=== PATIENT | female | born 1950 | race Caucasian/White ===

== ENCOUNTER → 2017-08-28 | Outpatient (CLI) | payer MEDICARE ==
--- NOTE | 2017-08-29 10:49 | MM ---
Reason for exam: screening (asymptomatic). Last mammogram was performed 1 year ago. History: Patient is postmenopausal. Physical Findings: A clinical breast exam by your physician is recommended on an annual basis and results should be correlated with mammographic findings. MG 3D Screening Mammo W/Cad Bilateral CC and MLO view(s) were taken. Prior study comparison: August 25, 2016, bilateral MG 3d screening mammo w/cad. August 23, 2015, bilateral MG screening mammo w CAD. The breast tissue is heterogeneously dense. This may lower the sensitivity of mammography. No suspicious abnormality. No significant changes when compared with prior studies. ASSESSMENT: Negative, BI-RAD 1 RECOMMENDATION: Routine screening mammogram of both breasts in 1 year.
== END | disposition home or self-care (01) ==
LOC: RADMAMWWP 06:46
PROVIDERS: ATTEND Internal Medicine
DX: Z12.31 Encounter for screening mammogram for malignant neoplasm of breast (principal)
CPT/HCPCS: 77063; G0202

== ENCOUNTER → 2018-09-17 | Outpatient (CLI) | payer MEDICARE ==
--- NOTE | 2018-09-18 14:24 | MM ---
Reason for exam: screening (asymptomatic). Last mammogram was performed 1 year and 1 month ago. History: Patient is postmenopausal. Took hormonal contraceptives for 4 years. Physical Findings: A clinical breast exam by your physician is recommended on an annual basis and results should be correlated with mammographic findings. MG 3D Screening Mammo W/Cad Bilateral CC and MLO view(s) were taken. Prior study comparison: August 28, 2017, bilateral MG 3d screening mammo w/cad. August 25, 2016, bilateral MG 3d screening mammo w/cad. The breast tissue is heterogeneously dense. This may lower the sensitivity of mammography. Benign appearing bilateral calcifications. No suspicious abnormality. No significant changes when compared with prior studies. ASSESSMENT: Benign, BI-RAD 2 RECOMMENDATION: Routine screening mammogram of both breasts in 1 year.
== END ==
LOC: RADMAMWWP 09:47
PROVIDERS: ATTEND Internal Medicine
DX: Z12.31 Encounter for screening mammogram for malignant neoplasm of breast (principal)
CPT/HCPCS: 77063; 77067

== ENCOUNTER → 2018-10-23 | Outpatient (CLI) | payer MEDICARE ==
[2018-10-23 13:37] LABS: Blood Urea Nitrogen 11 mg/dL (7-17)
--- NOTE | 2018-10-23 16:05 | CT ---
EXAMINATION TYPE: CT urogram wo/w con DATE OF EXAM: 10/23/2018 HISTORY: Hematuria CT DLP: 2922mGycm Automated Exposure Control for Dose Reduction was Utilized. CONTRAST: CT scan of the abdomen and pelvis is performed without oral and without and with IV Contrast, patient injected with 100 mL of Isovue 300. Urogram protocol with Three-D reconstructed images created on a independent workstation and reviewed. COMPARISON: None FINDINGS: KUB: Noncontrast images show no renal calculus bilaterally. Postcontrast images show symmetric cortic al medullary uptake and excretion from both kidneys without evidence of hydronephrosis bilaterally. T here are few subcentimeter low dense lesions scattered throughout both kidneys are too small to furth er characterize per presumed benign. Visualized portion of both ureters show no suspicious dilatation or obstructing mass/calculus. Bladder show satisfactory distention on 10 minute images without suspi cious intraluminal mass or wall thickening. . LUNG BASES: No significant abnormality is appreciated. LIVER/GB: Cholecystectomy clips are noted. PANCREAS: No significant abnormality is seen. SPLEEN: No significant abnormality is seen. ADRENALS: No significant abnormality is seen. KIDNEYS: No significant abnormality is seen. BOWEL: No significant abnormality is seen. UTERUS/ADNEXA: Uterus is surgically absent. LYMPH NODES: No greater than 1cm abdominal or pelvic lymph nodes are appreciated. OSSEOUS STRUCTURES: Mild to moderate multilevel spurring in the mid to lower thoracic spine is presen t. There is multilevel facet arthropathy in the mid to lower lumbar spine. Moderate narrowing and spu rring of both hip joints is seen. OTHER: Mild haziness of the mesentery is seen for reference coronal image 45 series 15. No obvious ad enopathy or suspicious masses are identified. This can be followed. IMPRESSION: No suspicious finding is seen to account for patient's symptoms of hematuria.
== END | disposition home or self-care (01) ==
LOC: RADCTMAIN 13:01
PROVIDERS: ATTEND Internal Medicine
DX: R31.9 Hematuria, unspecified (principal)
CPT/HCPCS: 82565; 84520; 74178; 36415; 74400; Q9967

== ENCOUNTER → 2019-01-10 | Outpatient (CLI) | payer MEDICARE ==
--- NOTE | 2019-01-11 22:21 | CT ---
EXAMINATION TYPE: CT abdomen wo con DATE OF EXAM: 01/10/2019 COMPARISON: CT urogram 10/23/2018 INDICATION: epigastric pain DLP: 491.3 mGycm, Automated exposure control for dose reduction was used. CONTRAST: 0 mL of Isovue 300. Study performed with Oral Contrast TECHNIQUE: Axial images were obtained from above the diaphragm to the pubic rami in the axial plane a t 5 mm thick sections. Reconstructed images are reviewed on the computer in the coronal plane. FINDINGS: Limited CT sections are obtained the lung bases. The lung bases are clear. CT ABDOMEN: Liver: Normal Spleen: Normal Pancreas: Normal Adrenal glands: The adrenal glands are normal. Gallbladder: Surgically absent Kidneys: No masses are evident. No hydronephrosis is present. No cysts are present. No renal stone s are identified. Aorta: Normal Inferior vena cava: Normal. IMPRESSIONS: 1. No suspicious acute changes to account for epigastric pain
== END | disposition home or self-care (01) ==
LOC: RADCTMAIN 16:51
PROVIDERS: ATTEND Internal Medicine
DX: K46.9 Unspecified abdominal hernia without obstruction or gangrene (principal)
CPT/HCPCS: 74150

== ENCOUNTER → 2019-09-09 | Outpatient (CLI) | payer MEDICARE ==
--- NOTE | 2019-09-09 13:27 | US ---
EXAMINATION TYPE: US venous doppler duplex LE LT DATE OF EXAM: 09/09/2019 12:48 PM COMPARISON: NONE CLINICAL HISTORY: LLE pain in left lower leg M79.662. SIDE PERFORMED: Left TECHNIQUE: The lower extremity deep venous system is examined utilizing real time linear array sonog yamileth with graded compression, doppler sonography and color-flow sonography. VESSELS IMAGED: External Iliac Vein (EIV) Common Femoral Vein Deep Femoral Vein Greater Saphenous Vein * Femoral Vein Popliteal Vein Small Saphenous Vein * Proximal Calf Veins (* superficial vessels) Left Leg: Negative for DVT Grayscale, color doppler, spectral doppler imaging performed of the deep veins of the left lower ext remity. There is normal flow, compressibility, vascular waveforms. IMPRESSION: No ultrasound evidence for acute DVT in the left lower extremity.
== END | disposition home or self-care (01) ==
LOC: RADUSWWP 12:29
PROVIDERS: ATTEND Internal Medicine
DX: M79.662 Pain in left lower leg (principal)

== ENCOUNTER → 2019-09-18 | Outpatient (CLI) | payer MEDICARE ==
--- NOTE | 2019-09-22 08:52 | MM ---
Reason for exam: screening (asymptomatic). Last mammogram was performed 1 year ago. History: Patient is postmenopausal. Took hormonal contraceptives for 4 years. Physical Findings: A clinical breast exam by your physician is recommended on an annual basis and results should be correlated with mammographic findings. MG 3D Screening Mammo W/Cad Bilateral CC and MLO view(s) were taken. Prior study comparison: September 17, 2018, bilateral MG 3d screening mammo w/cad. August 28, 2017, bilateral MG 3d screening mammo w/cad. The breast tissue is heterogeneously dense. This may lower the sensitivity of mammography. No significant changes when compared with prior studies. ASSESSMENT: Negative, BI-RAD 1 RECOMMENDATION: Routine screening mammogram of both breasts in 1 year.
== END | disposition home or self-care (01) ==
LOC: RADMAMWWP 11:40
PROVIDERS: ATTEND Internal Medicine
DX: Z12.31 Encounter for screening mammogram for malignant neoplasm of breast (principal)
CPT/HCPCS: 77063; 77067

== ENCOUNTER → 2020-07-05 | Outpatient (CLI) | payer MEDICARE ==
--- NOTE | 2020-07-05 14:31 | US ---
EXAMINATION TYPE: US kidneys/renal and bladder DATE OF EXAM: 07/05/2020 COMPARISON: 03/29/2016 CLINICAL HISTORY: R31.21 Asymptomatic microscopic hematuria. No pain. Microscopic hematuria. EXAM MEASUREMENTS: Right Kidney: 10.7 x 4.9 x 3.7 cm Left Kidney: 10.8 x 4.5 x 5.4 cm Right Kidney: medial anechoic lesion at hilum = 1.1 x 0.8 cm, may be a peripelvic cyst. Left Kidney: No hydronephrosis or masses seen Bladder: distended, anechoic Bilateral Jets seen IMPRESSION: Suspected peripelvic cyst right kidney
== END | disposition home or self-care (01) ==
LOC: RADUSWWP 13:29
PROVIDERS: ATTEND Internal Medicine
DX: R31.21 Asymptomatic microscopic hematuria (principal)
CPT/HCPCS: 76770

== ENCOUNTER → 2020-07-07 | Outpatient (CLI) | payer MEDICARE ==
--- NOTE | 2020-07-07 08:12 | US ---
EXAMINATION TYPE: US liver DATE OF EXAM: 07/07/2020 COMPARISON: CT CLINICAL HISTORY: Increased Bilirubin E80.7. EXAM MEASUREMENTS: Liver Length: 12.5 cm Gallbladder Wall: Surgically absent CBD: 0.5 cm Right Kidney: 9.3 x 3.9 x 4.7 cm Pancreas: Limited by bowel gas Liver: wnl Gallbladder: Surgically absent CBD: wnl Right Kidney: No hydronephrosis or masses seen IMPRESSION: 1. Postcholecystectomy changes.
== END | disposition home or self-care (01) ==
LOC: RADUSWWP 06:50
PROVIDERS: ATTEND Internal Medicine
DX: E80.7 Disorder of bilirubin metabolism, unspecified (principal); Z90.49 Acquired absence of other specified parts of digestive tract
CPT/HCPCS: 76705

== ENCOUNTER 2020-08-23 09:50 | Emergency (ER) | payer MEDICARE ==
[2020-08-23 09:57] VITALS: TEMP 98.5
[2020-08-23] MEDS ORDERED: SODIUM CHLORIDE 0.9% 500 ML 500 ML IV STA (10:21)
--- NOTE | 2020-08-23 10:22 | ED ---
General Adult HPI - General Chief complaint: Chest Pain Stated complaint: Chest Pains, +COVID Time Seen by Provider: 08/23/20 10:05 Source: patient, RN notes reviewed Mode of arrival: wheelchair Limitations: no limitations - History of Present Illness Initial comments: 69-year-old female with a past medical history of hyperlipidemia, hypertension, GERD presents to the emergency department for chest pain. Patient states this started last night. Patient describes the pain as a sharp pain that comes and goes in the left side of her chest. Patient states that when she can get up and walk the pain is better. She states that going from sitting to standing and movement worsens the pain. Patient states she has had costochondritis in the past and states it feels somewhat similar. Patient reports that she was tested positive for covid 3 days ago. She reports that she has had symptoms of a sinus infection August 08. She is also felt more weak than normal. She states she has minimal cough and congestion. No shortness of breath. No fevers. no diaphoresis. never smoker. Patient has no other complaints at this time including shortness of breath, abdominal pain, nausea or vomiting, headache, or visual changes. - Related Data Home Medications Medication Instructions Recorded Confirmed Aspirin 81 mg PO HS 12/08/15 08/23/20 Calcium Carbonate/Vitamin D3 1 tab PO BID 12/08/15 08/23/20 [Calcium 600 + Vit D Tablet] Fluticasone Propionate 1 spray EA NOSTRIL DAILY 12/08/15 08/23/20 Metoprolol Succinate [Toprol XL] 50 mg PO BID 12/08/15 08/23/20 Montelukast [Singulair] 10 mg PO HS 12/08/15 08/23/20 Multivitamins, Thera [Multivitamin] 1 tab PO DAILY 12/08/15 08/23/20 amLODIPine BESYLATE/BENAZEPRIL 1 cap PO DAILY 12/08/15 08/23/20 [Lotrel 5-40 mg Capsule] Atorvastatin [Lipitor] 10 mg PO HS 08/23/20 08/23/20 Cetirizine HCl [Zyrtec] 10 mg PO DAILY 08/23/20 08/23/20 Famotidine [Pepcid] 40 mg PO BID 08/23/20 08/23/20 methylPREDNISolone Dose Pack See Taper PO DAILY 08/23/20 08/23/20 [Medrol Dose Pack] Allergies Allergy/AdvReac Type Severity Reaction Status Date / Time erythromycin base AdvReac Diarrhea Verified 08/23/20 11:19 lansoprazole [From Prevacid] AdvReac Diarrhea Verified 08/23/20 11:19 omeprazole [From Prilosec] AdvReac Diarrhea Verified 08/23/20 11:19 omeprazole magnesium AdvReac Diarrhea Verified 08/23/20 11:19 [From Prilosec] Review of Systems ROS Statement: Those systems with pertinent positive or pertinent negative responses have been documented in the HPI. ROS Other: All systems not noted in ROS Statement are negative. Past Medical History Past Medical History: GERD/Reflux, Hyperlipidemia, Hypertension, Osteoarthritis (OA) Additional Past Medical History / Comment(s): hiatle hernia, palpitations History of Any Multi-Drug Resistant Organisms: None Reported Past Surgical History: Appendectomy, Cholecystectomy, Hysterectomy, Orthopedic Surgery, Tubal Ligation Past Anesthesia/Blood Transfusion Reactions: No Reported Reaction Past Psychological History: No Psychological Hx Reported Smoking Status: Never smoker Past Alcohol Use History: None Reported Past Drug Use History: None Reported - Past Family History Mother Family Medical History: CVA/TIA (Mother at the age of 45 from CVA) Father Family Medical History: CVA/TIA (Father at age of 79 from CVA) Brother(s) Family Medical History: Cancer (Patient had one brother who at age of 50 from lung cancer) Sister(s) Family Medical History: AFIB, Congestive Heart Failure (CHF) (Patient has 5 sisters one with palpitation status post permanent pacemaker placement, one with A. fib, one with the polyps status post surgery.), GERD/Reflux, Thyroid Disorder General Exam Limitations: no limitations General appearance: alert, in no apparent distress Head exam: Present: atraumatic, normocephalic, normal inspection Eye exam: Present: normal appearance, PERRL, EOMI. Absent: scleral icterus, conjunctival injection, periorbital swelling ENT exam: Present: normal exam, mucous membranes moist Neck exam: Present: normal inspection, full ROM. Absent: tenderness, meningismus, lymphadenopathy Respiratory exam: Present: normal lung sounds bilaterally, chest wall tenderness (L anterior chest wall tenderness). Absent: respiratory distress, wheezes, rales, rhonchi, stridor Cardiovascular Exam: Present: regular rate, normal rhythm, normal heart sounds. Absent: systolic murmur, diastolic murmur, rubs, gallop, clicks GI/Abdominal exam: Present: soft, normal bowel sounds. Absent: distended, tenderness, guarding, rebound, rigid Neurological exam: Present: alert Course Vital Signs 08/23/20 08/23/20 09:54 11:33 Temperature 98.5 F Pulse Rate 71 69 Respiratory 18 16 Rate Blood Pressure 153/88 147/86 O2 Sat by Pulse 98 98 Oximetry Medical Decision Making - Medical Decision Making Vitals are stable. Patient is well-appearing. The pain she describes as a typical. She reports it is a sharp pain that gets better with walking. Worsens with certain movements. Tender on exam. Patient has left-sided anterior chest wall tenderness EKG shows a sinus rhythm with PVCs. Ventricular rate 73. CBC unremarkable. CMP unremarkable. Troponin negative. BNP 339. D-dimer slightly elevated. CT of the chest showed no evidence for pulmonary embolism. Patient did have stress test in 2015 that was negative. I discussed this case with Dr. Andino. Pain is atypical in nature. Patient feeling much better. Discussed inpatient versus outpatient treatment, as symptoms are atypical and likely related to costochondritis or chest wall syndrome she prefers outpatient management. She is agreeable to returning should symptoms worsen. - Lab Data Result diagrams: 08/23/20 10:22 08/23/20 10:22 Lab Results 08/23/20 08/23/20 08/23/20 Range/Units 10:22 10:22 10:22 WBC 10.8 H (3.8-10.6) k/uL RBC 5.11 (3.80-5.40) m/uL Hgb 14.0 (11.4-16.0) gm/dL Hct 42.2 (34.0-46.0) % MCV 82.6 (80.0-100.0) fL MCH 27.5 (25.0-35.0) pg MCHC 33.3 (31.0-37.0) g/dL RDW 13.5 (11.5-15.5) % Plt Count 266 (150-450) k/uL MPV 7.1 Neutrophils % 84 % Lymphocytes % 7 % Monocytes % 8 % Eosinophils % 0 % Basophils % 0 % Neutrophils # 9.0 H (1.3-7.7) k/uL Lymphocytes # 0.7 L (1.0-4.8) k/uL Monocytes # 0.9 (0-1.0) k/uL Eosinophils # 0.0 (0-0.7) k/uL Basophils # 0.0 (0-0.2) k/uL PT 9.7 (9.0-12.0) sec INR 0.9 (<1.2) APTT 23.2 (22.0-30.0) sec D-Dimer 0.76 H (<0.60) mg/L FEU Sodium 140 (137-145) mmol/L Potassium 3.8 (3.5-5.1) mmol/L Chloride 105 (98-107) mmol/L Carbon Dioxide 27 (22-30) mmol/L Anion Gap 8 mmol/L BUN 11 (7-17) mg/dL Creatinine 0.57 (0.52-1.04) mg/dL Est GFR (CKD-EPI)AfAm >90 (>60 ml/min/1.73 sqM) Est GFR (CKD-EPI)NonAf >90 (>60 ml/min/1.73 sqM) Glucose 116 H (74-99) mg/dL Calcium 9.6 (8.4-10.2) mg/dL Magnesium 2.0 (1.6-2.3) mg/dL Total Bilirubin 1.5 H (0.2-1.3) mg/dL AST 44 H (14-36) U/L ALT 30 (4-34) U/L Alkaline Phosphatase 63 (38-126) U/L Troponin I (0.000-0.034) ng/mL NT-Pro-B Natriuret Pep pg/mL Total Protein 7.2 (6.3-8.2) g/dL Albumin 4.2 (3.5-5.0) g/dL Lipase 123 (23-300) U/L 08/23/20 08/23/20 Range/Units 10:22 10:22 WBC (3.8-10.6) k/uL RBC (3.80-5.40) m/uL Hgb (11.4-16.0) gm/dL Hct (34.0-46.0) % MCV (80.0-100.0) fL MCH (25.0-35.0) pg MCHC (31.0-37.0) g/dL RDW (11.5-15.5) % Plt Count (150-450) k/uL MPV Neutrophils % % Lymphocytes % % Monocytes % % Eosinophils % % Basophils % % Neutrophils # (1.3-7.7) k/uL Lymphocytes # (1.0-4.8) k/uL Monocytes # (0-1.0) k/uL Eosinophils # (0-0.7) k/uL Basophils # (0-0.2) k/uL PT (9.0-12.0) sec INR (<1.2) APTT (22.0-30.0) sec D-Dimer (<0.60) mg/L FEU Sodium (137-145) mmol/L Potassium (3.5-5.1) mmol/L Chloride (98-107) mmol/L Carbon Dioxide (22-30) mmol/L Anion Gap mmol/L BUN (7-17) mg/dL Creatinine (0.52-1.04) mg/dL Est GFR (CKD-EPI)AfAm (>60 ml/min/1.73 sqM) Est GFR (CKD-EPI)NonAf (>60 ml/min/1.73 sqM) Glucose (74-99) mg/dL Calcium (8.4-10.2) mg/dL Magnesium (1.6-2.3) mg/dL Total Bilirubin (0.2-1.3) mg/dL AST (14-36) U/L ALT (4-34) U/L Alkaline Phosphatase (38-126) U/L Troponin I <0.012 (0.000-0.034) ng/mL NT-Pro-B Natriuret Pep 339 pg/mL Total Protein (6.3-8.2) g/dL Albumin (3.5-5.0) g/dL Lipase (23-300) U/L Disposition Clinical Impression: Atypical chest pain Disposition: HOME SELF-CARE Condition: Good Instructions (If sedation given, give patient instructions): Costochondritis (ED) Additional Instructions: Please follow-up with your doctor in one to 2 days. If you are having worsening symptoms such as worsening pain or shortness of breath return to the emergency room. Is patient prescribed a controlled substance at d/c from ED?: No Referrals: Sailaja Mendoza MD [Primary Care Provider] - 1-2 days Time of Disposition: 12:51
[2020-08-23 10:46] LABS: Basophils % (A) 0 %; Eosinophils % (A) 0 %; HCT 42.2 % (34.0-46.0); Lymphocytes # (A) 0.7 k/uL (1.0-4.8); Lymphocytes % (A) 7 %; MCH 27.5 pg (25.0-35.0); MCHC 33.3 g/dL (31.0-37.0); MCV 82.6 fL (80.0-100.0); Mean Platelet Volume 7.1; Monocytes # (A) 0.9 k/uL (0-1.0); Monocytes % (A) 8 %; Neutrophils % (A) 84 %; Platelet Count 266 k/uL (150-450); RBC 5.11 m/uL (3.80-5.40); RDW 13.5 % (11.5-15.5); WBC 10.8 k/uL (3.8-10.6)
[2020-08-23 10:51] LABS: INR 0.9 (<1.2); Partial Thromboplastin Time 23.2 sec (22.0-30.0); Prothrombin Time 9.7 sec (9.0-12.0)
--- NOTE | 2020-08-23 10:51 | XR ---
EXAMINATION TYPE: XR chest 1V portable DATE OF EXAM: 08/23/2020 COMPARISON: NONE HISTORY: Chest pain TECHNIQUE: Single frontal view of the chest is obtained. FINDINGS: Heart size is normal. No overt failure. No pneumothorax or focal consolidation. No pleural effusion. Hypertrophic change of the spine. IMPRESSION: No acute process.
[2020-08-23 10:57] LABS: ALT 30 U/L (4-34); African American GFR (CKD) >90 (>60 ml/min/1.73 sqM); Albumin 4.2 g/dL (3.5-5.0); Anion Gap 8 mmol/L; Blood Urea Nitrogen 11 mg/dL (7-17); Calcium 9.6 mg/dL (8.4-10.2); Carbon Dioxide 27 mmol/L (22-30); Chloride 105 mmol/L (98-107); Glucose 116 mg/dL (74-99); Lipase 123 U/L (23-300); Non-African American GFR(CKD) >90 (>60 ml/min/1.73 sqM); Sodium 140 mmol/L (137-145); Total Bilirubin 1.5 mg/dL (0.2-1.3); Total Protein 7.2 g/dL (6.3-8.2)
[2020-08-23 11:01] LABS: D-Dimer 0.76 mg/L FEU (<0.60)
[2020-08-23 11:20] LABS: AST 44 U/L (14-36); Alkaline Phosphatase 63 U/L (38-126); Potassium 3.8 mmol/L (3.5-5.1)
[2020-08-23] MEDS ORDERED: ASPIRIN 325 MG TAB PO STA (11:24)
[2020-08-23] MEDS ORDERED: MORPHINE SULFATE 2 MG/ML SYRINGE IVP STA (11:24)
--- NOTE | 2020-08-23 12:19 | CT ---
EXAMINATION TYPE: CT chest angio for PE DATE OF EXAM: 08/23/2020 COMPARISON: None HISTORY: SOB CT DLP: 258.5 mGycm CONTRAST: CT chest with contrast and 3D reconstruction with MIP imaging is performed with IV Contrast, patient injected with 56ml mL of Isovue 370. Contrast-enhanced CT of the chest was performed through the course of the pulmonary arteries with bee g and mediastinal window settings submitted. 3D reconstruction with MIP imaging was also performed. PULMONARY ARTERIES: The pulmonary arteries and their major tributaries are patent. I do not see deyvi dence for sizable filling defect to suggest pulmonary embolic process. LUNGS: The lungs are clear and free of infiltrate. There is evidence of basilar compressive atelectas is. No pulmonary nodule or mass is detected. No pleural effusion. MEDIASTINUM: Thoracic aorta is of normal caliber,however, evaluation is limited given timing of the contrast bolus. If there is concern for thoracic aortic pathology consider HERON. Correlate clinicall y . The heart is enlarged. No evidence for mediastinal mass. No mediastinal lymph nodes greater bushra n 1cm. HILAR STRUCTURES: No evidence for mass. No hilar lymph nodes greater than 1 cm. UPPER ABDOMEN: No significant abnormality is seen. IMPRESSION: 1. No evidence for Pulmonary embolism at this time.
[2020-08-23] MEDS ORDERED: ACET/COD 300 MG/30 MG STARTER PACK 6 TAB BTL PO STA (12:51)
[2020-08-23 13:08] VITALS: BP 128/71; PULSE 86; RESP 14
== END 2020-08-23 13:07 | disposition home or self-care (01) ==
LOC: EC 09:50
DX: R07.89 Other chest pain (principal); R79.89 Other specified abnormal findings of blood chemistry; I49.3 Ventricular premature depolarization; I10 Essential (primary) hypertension; E78.5 Hyperlipidemia, unspecified; K21.9 Gastro-esophageal reflux disease without esophagitis; M19.90 Unspecified osteoarthritis, unspecified site; K44.9 Diaphragmatic hernia without obstruction or gangrene; Z79.51 Long term (current) use of inhaled steroids; Z79.82 Long term (current) use of aspirin; Z79.899 Other long term (current) drug therapy; Z88.1 Allergy status to other antibiotic agents; Z88.8 Allergy status to other drugs, medicaments and biological substances
CPT/HCPCS: 36415; 93005; 85379; 83880; 80053; 83690; 83735; 84484; 85025; 85610; 85730; 71045; 71275; 99285; 96374; 96361 ×3; J2270; Q9967

== ENCOUNTER → 2020-08-31 | Outpatient (CLI) | payer MEDICARE | END | disposition home or self-care (01) | LOC: LABWHC1 16:10 | PROVIDERS: ATTEND Internal Medicine | DX: U07.1 COVID-19 (principal) | CPT/HCPCS: U0003; C9803 ==

== ENCOUNTER → 2020-09-13 | Outpatient (CLI) | payer MEDICARE | END | disposition home or self-care (01) | LOC: LABWHC1 10:08 | PROVIDERS: ATTEND Internal Medicine | DX: U07.1 COVID-19 (principal) | CPT/HCPCS: U0003; C9803 ==

== ENCOUNTER → 2020-10-28 | Outpatient (CLI) | payer MEDICARE ==
--- NOTE | 2020-10-28 17:54 | BD ---
EXAMINATION TYPE: Axial Bone Density DATE OF EXAM: 10/28/2020 COMPARISON: 10.06.2016 CLINICAL HISTORY: 70 YR OLD FEMALE ICD-10 CODE: M81.0 AGE RELATED OSTEOPOROSIS Height: 61 Weight: 179 FRAX RISK QUESTIONS: Secondary Osteoporosis: YES 3. Menopause before 45: YES, POSSIBLY RISK FACTORS HISTORY OF: Postmenopausal woman: YES, SINCE AGE 30 PARTIAL HYST, UNKNOWN BLOOD LEVEL Lost more than 2 inches in height since high school: YES Hyperparathyroidism: NO Adrenal Insufficiency: NO MEDICATIONS: Additional Medications: BP MEDS, REFLUX , STATIN FOR CHOLESTEROL, VIT D AND CALCIUM Additional History: HYPERTENSION, ARTHRITIS, CHOLESTEROL AND REFLUX EXAM MEASUREMENTS: Bone mineral densitometry was performed using the [email or web address] System. Bone mineral density as measured about the Lumbar spine is: ----- L1-L4(G/cm2): 1.349 T Score Values are as follows: ----- L1: -0.7 ----- L2: 0.9 ----- L3: 2.6 ----- L4: 2.0 ----- L1-L4: 1.4 Bone mineral density has: Increased 8.2% since study of: 10.06.2016 Bone mineral density about the R hip (g/cm2): 1.022 Bone mineral density about the L hip (g/cm2): 1.020 T Score values are as follows: -----R Neck: -0.2 -----L Neck: -0.3 -----R Total: 0.1 -----L Total: 0.1 Bone mineral density has: Increased 4.5% since study of: 10.06.2016 FRAX%s: THERE IS A 7.55 CHANCE FOR A MAJOR OSTEOPOROTIC FX AND A 0.6% FOR HIP......PROBABILITY FOR FX IN 10 YRS TIME IMPRESSION: Normal (Values between +1 and -1 indicate normal bone mass). Consider repeating this study in 5 year s or sooner if there is some new clinical indication. NOTE: T-SCORE=SD OF THE YOUNG ADULT MEAN.
== END | disposition home or self-care (01) ==
LOC: RADBDWWP 09:16
PROVIDERS: ATTEND Internal Medicine
DX: M81.0 Age-related osteoporosis without current pathological fracture (principal)
CPT/HCPCS: 77080

== ENCOUNTER → 2020-12-17 | Outpatient (CLI) | payer MEDICARE ==
--- NOTE | 2020-12-20 11:21 | MM ---
Reason for exam: screening (asymptomatic). Last mammogram was performed 1 year and 3 months ago. History: Patient is postmenopausal. Took hormonal contraceptives for 4 years. Physical Findings: A clinical breast exam by your physician is recommended on an annual basis and results should be correlated with mammographic findings. MG 3D Screening Mammo W/Cad Bilateral CC and MLO view(s) were taken. Prior study comparison: September 18, 2019, bilateral MG 3d screening mammo w/cad. September 17, 2018, bilateral MG 3d screening mammo w/cad. The breast tissue is heterogeneously dense. This may lower the sensitivity of mammography. Superior asymmetric density is more defined and incompletely disperses on 3D images. ASSESSMENT: Incomplete: need additional imaging evaluation, BI-RAD 0 RECOMMENDATION: Special view mammogram of the left breast. (3D) If lesion persists on supplemental views, image directed ultrasound is recommended. [facility] will attempt to contact patient to return for supplemental views and ultrasound if indicated.
== END | disposition home or self-care (01) ==
LOC: RADMAMWWP 10:07
PROVIDERS: ATTEND Internal Medicine
DX: Z12.31 Encounter for screening mammogram for malignant neoplasm of breast (principal)
CPT/HCPCS: 77063; 77067

== ENCOUNTER → 2020-12-21 | Outpatient (CLI) | payer MEDICARE ==
--- NOTE | 2020-12-21 10:08 | MM ---
Reason for exam: additional evaluation requested from abnormal screening. Last mammogram was performed less than 1 month ago. History: Patient is postmenopausal. Took hormonal contraceptives for 4 years. Physical Findings: Nurse did not find any significant physical abnormalities on exam. MG 3D Work Up W/Cad LT Spot compression MLO, ML, and CC view(s) were taken of the left breast. Prior study comparison: December 17, 2020, bilateral MG 3d screening mammo w/cad. September 18, 2019, bilateral MG 3d screening mammo w/cad. The breast tissue is heterogeneously dense. This may lower the sensitivity of mammography. There is no discrete abnormality including area of concern left upper MLO view. These results were verbally communicated with the patient and result sheet given to the patient on 12/21/20. ASSESSMENT: Probably benign, BI-RAD 3 RECOMMENDATION: Follow-up diagnostic mammogram of the left breast in 6 months.
== END ==
LOC: RADMAMWWP 08:41
PROVIDERS: ATTEND Internal Medicine
DX: R92.8 Other abnormal and inconclusive findings on diagnostic imaging of breast (principal); Z78.0 Asymptomatic menopausal state
CPT/HCPCS: 77065; G0279; 77061

== ENCOUNTER → 2021-02-09 | Outpatient (CLI) | payer MEDICARE ==
--- NOTE | 2021-02-09 11:11 | US ---
EXAMINATION TYPE: US venous doppler duplex LE RT DATE OF EXAM: 02/09/2021 10:56 AM COMPARISON: NONE CLINICAL HISTORY: I80.01 THROMBOPHLEBITIS OF SUPERFICIAL VEINS. Recent injury to right calf and now t here is bruising, palpable and pain. No h/o DVT, not on thinners SIDE PERFORMED: Right TECHNIQUE: The lower extremity deep venous system is examined utilizing real time linear array sonog yamileth with graded compression, doppler sonography and color-flow sonography. VESSELS IMAGED: Common Femoral Vein Deep Femoral Vein Greater Saphenous Vein * Femoral Vein Popliteal Vein Small Saphenous Vein * Proximal Calf Veins (* superficial vessels) Right Leg: Negative for DVT GSV appears to have internal echoes and non compressible at level of m id calf where patient had recent injury IMPRESSION: No evidence for DVT. Findings suggest superficial thrombosis.
== END | disposition home or self-care (01) ==
LOC: RADUSWWP 10:27
PROVIDERS: ATTEND Internal Medicine
DX: S80.11XA Contusion of right lower leg, initial encounter (principal); I80.01 Phlebitis and thrombophlebitis of superficial vessels of right lower extremity

== ENCOUNTER → 2021-06-27 | Outpatient (CLI) | payer MEDICARE ==
--- NOTE | 2021-06-27 11:10 | USB ---
Reason for exam: follow-up at short interval from prior study. History: Patient is postmenopausal. Took hormonal contraceptives for 4 years. Physical Findings: Nurse did not find any significant physical abnormalities on exam. US Breast Limited LT Left limited breast ultrasound including focal area of concern, retroareolar and axilla demonstrates no cystic or solid lesion seen. These results were verbally communicated with the patient and result sheet given to the patient on 06/27/21. ASSESSMENT: Negative, BI-RAD 1 RECOMMENDATION: Return to routine screening mammogram schedule for both breasts. Back on schedule.
== END | disposition home or self-care (01) ==
LOC: RADUSWWP 08:51
PROVIDERS: ATTEND Internal Medicine
DX: R92.8 Other abnormal and inconclusive findings on diagnostic imaging of breast (principal); Z78.0 Asymptomatic menopausal state; Z79.3 Long term (current) use of hormonal contraceptives

== ENCOUNTER → 2021-12-05 | Outpatient (CLI) | payer MEDICARE ==
--- NOTE | 2021-12-05 19:41 | MR ---
MR abdomen without contrast HISTORY: Elevated bilirubin, R 17 Multiplanar multisequence imaging obtained through the abdomen. No comparisons. There is no signal drop on out of phase imaging within the liver to suggest hepatic steatosis. No deyvi dent liver mass on this noncontrast exam. Cystic focus is present the anterior aspect of the right lo be inferiorly measuring approximately 16 mm with a septation. Central intrahepatic biliary ducts also showed dilation. Common bile duct is dilated. No evident filling defect to suggest choledocholithias is although there is motion on the exam, exam was not tailored for MRCP. Patient is post cholecystect mary. No evident pleural effusion. Within the head of the pancreas there is a small cystic focus seen on ax ial image 45 series 801 which may represent a small cyst measuring approximately 4 mm x 5 or possibly IPMN, consider follow-up, coronal image 14 series 301. The aorta is not dilated. Multiple subcentimeter cystic foci are associated with the kidneys, largest cyst within the right kidney anteriorly measures 1 cm. Spleen is unremarkable. Adrenal glands show s ymmetric appearance. No evident bowel obstruction. Degenerative disc changes with facet arthropathy noted in the visualized lumbar spine. There is spina l stenosis present at the lower lumbar spine. IMPRESSION: Small cyst within the liver as described. Dilation of the intra and extrahepatic biliary ducts could be due to postcholecystectomy change. Findings in the pancreas as described, consider fol low-up. There are some limitations to the exam as described.
== END | disposition home or self-care (01) ==
LOC: RADMRIMAIN 14:36
PROVIDERS: ATTEND Internal Medicine
DX: K76.89 Other specified diseases of liver (principal); K83.8 Other specified diseases of biliary tract
CPT/HCPCS: 74181

== ENCOUNTER → 2021-12-27 | Outpatient (CLI) | payer MEDICARE ==
--- NOTE | 2021-12-29 14:35 | MM ---
Reason for exam: screening (asymptomatic). Last mammogram was performed 1 year ago. History: Patient is postmenopausal. Took hormonal contraceptives for 4 years. Physical Findings: A clinical breast exam by your physician is recommended on an annual basis and results should be correlated with mammographic findings. MG 3D Screening Mammo W/Cad Bilateral CC and MLO view(s) were taken. Prior study comparison: December 21, 2020, left breast MG 3d work up w/cad LT. December 17, 2020, bilateral MG 3d screening mammo w/cad. No significant changes when compared with prior studies. ASSESSMENT: Benign, BI-RAD 2 RECOMMENDATION: Routine screening mammogram of both breasts in 1 year.
== END | disposition home or self-care (01) ==
LOC: RADMAMWWP 14:05
PROVIDERS: ATTEND Internal Medicine
DX: Z12.31 Encounter for screening mammogram for malignant neoplasm of breast (principal); Z78.0 Asymptomatic menopausal state
CPT/HCPCS: 77063; 77067

== ENCOUNTER → 2023-01-09 | Outpatient (CLI) | payer MEDICARE ==
--- NOTE | 2023-01-10 08:44 | MM ---
Reason for Exam: Screening (asymptomatic). Last mammogram was performed 1 year(s) and 1 month(s) ago. Patient History: Menarche at age 8. First Full-Term at age 26. Left ovary removed at age 32. Right ovary removed at age 32. Hysterectomy at age 32. Postmenopausal. Patient used Hormonal Contraceptives for 4 years. Risk Values: Nicole 5 year model risk: 2.2%. NCI Lifetime model risk: 5.0%. Prior Study Comparison: 12/17/2020 Bilateral Screening Mammogram, [facility]. 12/21/2020 Left Diagnostic Mammogram, [facility]. 12/27/2021 Bilateral Screening Mammogram, [facility]. Tissue Density: The breast tissue is heterogeneously dense. This may lower the sensitivity of mammography. Findings: Analyzed By CAD. Pattern is symmetrical and stable. No significant interval change. No suspicious groups of microcalcifications, spiculated or lobular masses, architectural distortion or other secondary signs of malignancy are mammographically apparent. Overall Assessment: Benign, BI-RAD 2 Management: Screening Mammogram of both breasts in 1 year. A negative mammogram report should not preclude additional follow up of suspicious palpable abnormalities. Patient should continue monthly self breast exam. A clinical breast exam by your physician is recommended on an annual basis and results should be correlated with mammographic findings. Electronically signed and approved by: Dominik Burk D.O. Radiologis
== END | disposition home or self-care (01) ==
LOC: RADMAMWWP 11:17
PROVIDERS: ATTEND Internal Medicine
DX: Z12.31 Encounter for screening mammogram for malignant neoplasm of breast (principal); Z78.0 Asymptomatic menopausal state
CPT/HCPCS: 77063; 77067

== ENCOUNTER → 2024-01-25 | Outpatient (CLI) | payer MEDICARE ==
--- NOTE | 2024-01-28 19:28 | MM ---
Reason for Exam: Screening (asymptomatic). Last screening mammogram was performed 12 month(s) ago. Patient History: Menarche at age 8. First Full-Term at age 26. Left ovary removed at age 32. Right ovary removed at age 32. Hysterectomy at age 32. Postmenopausal. Patient used Hormonal Contraceptives for 4 years. Risk Values: Nicole 5 year model risk: 2.2%. NCI Lifetime model risk: 4.7%. Prior Study Comparison: 12/21/2020 Left Diagnostic Mammogram, [facility]. 12/27/2021 Bilateral Screening Mammogram, [facility]. 01/09/2023 Bilateral MG 3D screening mammo w/cad, [facility]. Tissue Density: The breasts are heterogeneously dense, which may obscure small masses. Findings: Analyzed By CAD. There is no suspicious group of microcalcifications or new suspicious mass in either breast. Overall Assessment: Negative, BI-RAD 1 Management: Screening Mammogram of both breasts in 1 year. . Patient should continue monthly self-breast exams. A clinical breast exam by your physician is recommended on an annual basis. This exam should not preclude additional follow-up of suspicious palpable abnormalities. Note on Nicole scores and lifetime risk: 1. A Nicole score greater than 3% is considered moderate risk. If this is the case, consider specialist referral to assess eligibility for a risk reducing agent. 2. If overall lifetime risk for the development of breast cancer is 20% or higher, the patient may qualify for future screening with alternating mammogram and breast MRI. Electronically signed and approved by: Kerri Chin M.D. Radiologist
== END | disposition home or self-care (01) ==
LOC: RADMAMWWP 11:27
PROVIDERS: ATTEND Internal Medicine
DX: Z12.31 Encounter for screening mammogram for malignant neoplasm of breast (principal); Z78.0 Asymptomatic menopausal state
CPT/HCPCS: 77063; 77067

== ENCOUNTER → 2025-01-22 | Outpatient (CLI) | payer MEDICARE ==
--- NOTE | 2025-02-23 19:02 | P.CEMON ---
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
--- NOTE | 2025-02-25 08:46 | EM ---
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 MTDD
== END | disposition home or self-care (01) ==
LOC: RADECHMAIN 13:23
PROVIDERS: ATTEND Internal Medicine
DX: R00.1 Bradycardia, unspecified (principal); I10 Essential (primary) hypertension
CPT/HCPCS: 93270

== ENCOUNTER → 2025-02-24 | Outpatient (CLI) | payer MEDICARE ==
--- NOTE | 2025-02-24 10:39 | MM ---
Reason for Exam: Screening (asymptomatic). Last mammogram was performed 1 year(s) and 1 month(s) ago. Patient History: Menarche at age 8. First Full-Term at age 26. Left ovary removed at age 32. Right ovary removed at age 32. Hysterectomy at age 32. Postmenopausal. Patient used Hormonal Contraceptives for 4 years. Risk Values: Nicole 5 year model risk: 2.2%. NCI Lifetime model risk: 4.4%. Prior Study Comparison: 12/27/2021 Bilateral Screening Mammogram, [facility]. 01/09/2023 Bilateral MG 3D screening mammo w/cad, [facility]. 01/25/2024 Bilateral MG 3D screening mammo w/cad, [facility]. Tissue Density: The breasts are heterogeneously dense, which may obscure small masses. Findings: Analyzed By CAD. Right breast: There is no suspicious group of microcalcifications or new suspicious mass. Benign-appearing calcifications right breast. Left breast: There is no suspicious group of microcalcifications or new suspicious mass. Benign-appearing calcifications left breast. Overall Assessment: Benign, BI-RAD 2 Management: Screening Mammogram of both breasts in [address] [facility] will attempt to contact patient to return for supplemental views and ultrasound if indicated. Patient should continue monthly self-breast exams. A clinical breast exam by your physician is recommended on an annual basis. This exam should not preclude additional follow-up of suspicious palpable abnormalities. Note on Nicole scores and lifetime risk: 1. A Nicole score greater than 3% is considered moderate risk. If this is the case, consider specialist referral to assess eligibility for a risk reducing agent. 2. If overall lifetime risk for the development of breast cancer is 20% or higher, the patient may qualify for future screening with alternating mammogram and breast MRI. [facility], , 02/24/2025 10:34 AM. Electronically signed and approved by: Jose Boss DO
== END | disposition home or self-care (01) ==
LOC: RADMAMWWP 09:55
PROVIDERS: ATTEND Internal Medicine
DX: Z12.31 Encounter for screening mammogram for malignant neoplasm of breast (principal); R92.333 Mammographic heterogeneous density, bilateral breasts; R92.1 Mammographic calcification found on diagnostic imaging of breast; Z92.0 Personal history of contraception; Z78.0 Asymptomatic menopausal state
CPT/HCPCS: 77063; 77067